=== PATIENT | male | born 1970 | race Two or more races ===

== ENCOUNTER 2019-05-14 17:20 | Inpatient (IN) | payer OTHER ==
[~2019-05-14] VITALS: Ht 165.1 cm; Wt 109.3 kg
--- NOTE | 2019-05-14 19:48 | NUR ---
DENTAL ASSISTANT MEDICAL ASSISTANT NOTES PAGED [address] FOR ORDERS. SPOKE TO DR BROWN. AWAITING ORDERS.
[2019-05-14 20:00] VITALS: BP 133/97
--- NOTE | 2019-05-14 20:00 | NUR ---
MS RN NOTES RECEIVED PT ON BED. A/O X 4. ON ROOM AIR NO RESPIRATORY DISTRESS NOTED. IV ACCESS NOT WORKING. WILL INSERT ANOTHER ONE. PT BELONGINGS CHECK BY LINSEED CAKE TRIMMER. V/S STABLE. WOUND CHECK DONE. PICTURE TAKEN AND PLACED IN CHART. HEAD OF BED ELEVATED. SIDE RAILS UP. CALL LIGHT WITHIN REACH. BED ALARM ON. WILL CONTINUE TO MONITOR PT CLOSELY.
[2019-05-14] MEDS ORDERED: IV NS 0.9% 1,000 ML IV PRN (20:11)
[2019-05-14] MEDS ORDERED: ONDANSETRON HCL/PF 4 MG/2 ML VIAL IVP PRN (20:30)
[2019-05-14] MEDS ORDERED: Z GUARD REMEDY 2 OZ OINT TP PRN (20:30)
[2019-05-14] MEDS ORDERED: DEXTROSE 50%-WATER 50 ML DISP.SYRIN IV PRN (20:30)
[2019-05-14] MEDS ORDERED: MAG HYDROX/AL HYDROX/SIMETH 30 ML UDC PO PRN (20:30)
[2019-05-14] MEDS ORDERED: MAGNESIUM HYDROXIDE 30 ML UDC PO PRN (20:30)
[2019-05-14] MEDS ORDERED: ZOLPIDEM TARTRATE 5 MG TABLET PO PRN (20:30)
[2019-05-14 21:19] VITALS: BP 133/97
--- NOTE | 2019-05-14 21:40 | NUR ---
MS RN NOTES PER PT HIS WILL BRING HIS MEDLIST IN AM.
[2019-05-14] MEDS: BLOOD SUGAR DIAGNOSTIC 1 EACH STRIP VI SCH (22:45)
[2019-05-14] MEDS: *INSULIN REGULAR(HUMULIN R)HUM 100 UNIT/ML VIAL SQ PRN (22:47)
--- NOTE | 2019-05-14 23:09 | NUR ---
MS RN NOTES PT SEEN AND EXAMINED BY DR BROWN.
[2019-05-15] MEDS: MORPHINE SULFATE INJ 2 MG/ML DISP.SYRIN IV PRN ×4 (01:35→20:56)
[2019-05-15] MEDS ORDERED: VANCOMYCIN 1 GM VIAL ONE ×2 (01:55→01:57)
[2019-05-15] MEDS ORDERED: VANCOMYCIN 2 GM in IV NS 0.9% 500 ML IV ONE (02:00)
[2019-05-15] MEDS: VANCOMYCIN 1 GM in IV D5W 250ml IV SCH ×2 (02:03→03:51)
--- NOTE | 2019-05-15 06:13 | NUR ---
MS RN NOTES no acute changes noted during the shift. provided comfort and safety. will endorse to the am nurse for continuity of care.
[2019-05-15 06:44] LABS: BASOPHILS # (AUTO) 0.1 /CMM (0.0-0.2); BASOPHILS % (AUTO) 0.6 % (0.0-2.0); EOSINOPHILS % (AUTO) 3.6 % (0.0-6.0); HEMATOCRIT 40 % (39-51); HEMOGLOBIN 12.5 g/dL (13.5-17.5); LYMPHOCYTES # (AUTO) 2.5 /CMM (0.8-4.8); LYMPHOCYTES % (AUTO) 24.2 % (20.0-44.0); MEAN CORPUSCULAR HGB CONC 32 g/dl (31.0-36.0); MEAN CORPUSCULAR VOLUME 86 fL (80-96); MONOCYTES # (AUTO) 1.1 /CMM (0.1-1.30); MONOCYTES % (AUTO) 11.2 % (2.0-12.0); NEUTROPHILS # (AUTO) 6.2 /CMM (1.8-8.9); NEUTROPHILS % (AUTO) 60.4 % (43.0-81.0); PLATELET COUNT (AUTO) 275 /CMM (150-450); WHITE BLOOD COUNT (AUTO) 10.2 K/uL (4.3-11.0)
[2019-05-15] MEDS: BLOOD SUGAR DIAGNOSTIC 1 EACH STRIP VI SCH ×4 (07:14→21:46)
[2019-05-15] MEDS ORDERED: FEE PK DOSING 1 MIN EA MC ONE (07:24)
[2019-05-15 07:28] LABS: CALCIUM, SERUM 8.2 mg/dL (8.5-10.1); CREATININE 1.3 mg/dL (0.6-1.3); MAGNESIUM 1.9 mg/dL (1.8-2.4)
[2019-05-15 08:00] VITALS: BP_SYST 142; BP_SYST 161; BP_DIAS 75; BP_DIAS 89
--- NOTE | 2019-05-15 08:00 | NUR ---
MS RN NOTES RECEIVED PT ON BED. A/O X 4. ON ROOM AIR NO RESPIRATORY DISTRESS NOTED. IV ACCESS HEAD OF BED ELEVATED. SIDE RAILS UP. GOES TO THE TOILET OFTEN DUE TO LASIX IV. XENIA ABSCESS IS MANAGED BY PAIN MED PRN WITH EFFECTIVE RESULT. CALL LIGHT WITHIN REACH. BED ALARM ON. WILL CONTINUE TO MONITOR PT CLOSELY.
[2019-05-15] MEDS: FUROSEMIDE 40 MG/4 ML VIAL IV SCH ×2 (08:27→17:43)
[2019-05-15] MEDS ORDERED: LISI-607 PO (08:31)
[2019-05-15] MEDS ORDERED: MELO-105 PO (08:31)
[2019-05-15] MEDS ORDERED: IBUP-1955 PO (08:31)
[2019-05-15] MEDS ORDERED: DOCU-141 PO (08:31)
[2019-05-15] MEDS ORDERED: HYDR-4384 PO (08:31)
[2019-05-15] MEDS ORDERED: INSU100V3 IJ (08:31)
[2019-05-15] MEDS ORDERED: ATOR40TA PO (08:31)
--- NOTE | 2019-05-15 10:54 | NUR ---
WOUND CARE CONSULT: PT PRESENTS AMBULATORY AND CONTINENT WITH RED, INDURATED, SWOLLEN LEFT UPPER ARM, PRESENT ON ADMISSION. DEFER TO PMD. WILL SEE PRN.
[2019-05-15] MEDS: INSULIN REGULAR, HUMAN 100 UNIT/ML 3 ML VIAL SQ PRN (17:43)
[2019-05-15] MEDS: PIPERACILLIN /TAZOBACTAM 3.375 G in IV D5W 50 ML IV SCH ×2 (18:23→23:47)
--- NOTE | 2019-05-15 19:32 | NUR ---
ALL CONSENTS FOR INCISION,DRAINAGE AND DEBRIDEMENT OF XENIA ABSCESS TOMORROW HAS BEEN SIGNED.NPO POST MIDNIGHT. SX WILL BE DONE BY DR FIGUEREDO.CALL LIGHT PLACED WITHIN REACH.
[2019-05-15 20:00] VITALS: BP 148/89
[2019-05-16] MEDS: VANCOMYCIN 1.5 GM in IV D5W 500 ML IV SCH (02:05)
[2019-05-16] MEDS: MORPHINE SULFATE INJ 2 MG/ML DISP.SYRIN IV PRN ×5 (02:10→23:54)
--- NOTE | 2019-05-16 06:30 | NUR ---
MS RN PM CLOSING NOTES PT IN BED. A/O X 4. ON ROOM AIR NO RESPIRATORY DISTRESS NOTED. NEW IV ACCESS INSERTED AND CONTINUING IV ANTIBIOTIC INFUSION 22 LEFT AC. RIGHT AC NOTED TO BE LEAKING, DRESSING CHANGED AND LEAKING STOPPED AND PATIENT DENIES PAIN AT THE SITE. PATIENT MEDICATED FOR PAIN WITH MORPHINE 2MG ORDERED FOR PAIN OF 8 /10 TO LEFT ARM. SIDE RAILS UP. CALL LIGHT WITHIN REACH. BED ALARM ON. WILL CONTINUE TO MONITOR PT VERBALIZED UNDERSTANDUING TO CALL FOR ASSISTANCE NEEDED. .
[2019-05-16] MEDS: PIPERACILLIN /TAZOBACTAM 3.375 G in IV D5W 50 ML IV SCH ×5 (06:33→23:45)
[2019-05-16 06:48] LABS: BASOPHILS % (AUTO) 0.5 % (0.0-2.0); EOSINOPHILS % (AUTO) 4.1 % (0.0-6.0); HEMATOCRIT 36 % (39-51); HEMOGLOBIN 11.7 g/dL (13.5-17.5); LYMPHOCYTES # (AUTO) 1.5 /CMM (0.8-4.8); LYMPHOCYTES % (AUTO) 19.2 % (20.0-44.0); MEAN CORPUSCULAR HGB CONC 33 g/dl (31.0-36.0); MEAN CORPUSCULAR VOLUME 85 fL (80-96); MONOCYTES # (AUTO) 0.9 /CMM (0.1-1.30); MONOCYTES % (AUTO) 12.2 % (2.0-12.0); NEUTROPHILS # (AUTO) 4.9 /CMM (1.8-8.9); PLATELET COUNT (AUTO) 229 /CMM (150-450); RED BLOOD CELL COUNT(AUTO) 4.26 MIL/uL (4.5-6.0); WHITE BLOOD COUNT (AUTO) 7.7 K/uL (4.3-11.0)
[2019-05-16 06:55] LABS: ALANINE AMINOTRANSFERASE 22 U/L (12-78); ALBUMIN 2.7 g/dL (3.4-5.0); ALKALINE PHOSPHATASE 134 U/L (46-116); ASPARTATE AMINOTRANSFERASE 26 U/L (15-37); BILIRUBIN,TOTAL 0.5 mg/dL (0.2-1.0); CARBON DIOXIDE 28 mmol/L (21-32); CHLORIDE 101 mmol/L (98-107); CREATININE 1.1 mg/dL (0.6-1.3); GLUCOSE 144 mg/dL (74-106); MAGNESIUM 1.5 mg/dL (1.8-2.4); PHOSPHORUS 3.7 mg/dL (2.5-4.9); POTASSIUM 3.7 mmol/L (3.5-5.1); SODIUM SERUM 136 mmol/L (136-145); TOTAL PROTEIN, SERUM 7.5 g/dL (6.4-8.2); UREA NITROGEN, BLOOD 19 mg/dL (7-18)
[2019-05-16 06:56] LABS: CHOLESTEROL 85 mg/dL (<200); HDL CHOLESTEROL 30 mg/dL (40-60); LDL 51 mg/dL (0-99); TRIGLYCERIDES 51 mg/dL (30-150)
[2019-05-16] MEDS: BLOOD SUGAR DIAGNOSTIC 1 EACH STRIP VI SCH ×4 (07:34→21:23)
--- NOTE | 2019-05-16 07:44 | NUR ---
MS RN OPENING NOTES: RECEIVED PT AWAKE ON BED RESTING COMFORTABLY IN MODERATE HIGH BACK REST. A/O X 4. ON RA, NO SOB NOTED. NO C/O PAIN OR DISTRESS AT THIS TIME. IV ACCESS ON RAC #22 CURRENTLY WITH VANCOMYCIN @250 ML/HR INFUSING. PATENT AND INTACT. SAFETY MEASURES IN PLACE, BED KEPT IN LOW, LOCKED POSITION WITH SIDE RAILS X 2. CALL LIGHT WITHIN REACH. WILL CONTINUE TO MONITOR.
[2019-05-16 08:00] VITALS: BP 150/88
[2019-05-16] MEDS: FUROSEMIDE 40 MG/4 ML VIAL IV SCH ×3 (09:11→17:28)
[2019-05-16] MEDS: Magnesium 1GM/D5W 100ML PREMIX 100 ML IV SCH ×2 (09:12→10:42)
--- NOTE | 2019-05-16 11:31 | NUR ---
RN NOTES PATIENT LEFT UNIT FOR I & D, LEFT WITH HOSPITAL STAFF VIA GURNEY. PATIENT IS STABLE WITH NO S/S OF DISTRESS.
[2019-05-16] MEDS ORDERED: MIDAZOLAM HCL 2 MG/2ML VIAL ONE (11:39)
[2019-05-16] MEDS ORDERED: FAMOTIDINE/PF INJ 20 MG/2 ML VIAL IV ONE (11:40)
[2019-05-16] MEDS ORDERED: FENTANYL PF 100MCG/2ML AMPUL ONE (11:40)
--- NOTE | 2019-05-16 13:10 | NUR ---
RN NOTES PATIENT CAME BACK FROM I & D. PATIENT IN STABLE CONDITION. ALL ORDERS MADE AND CARRIED OUT. WILL CONTINUE TO MONITOR.
[2019-05-16] MEDS ORDERED: PHYTONADIONE INJ 10 MG/1 ML AMPUL SQ ONE (14:00)
[2019-05-16] MEDS: HYDROCODONE/APAP 5/325MG 1 EACH TABLET PO PRN ×2 (14:35→19:44)
[2019-05-16] MEDS: POTASSIUM CHLORIDE 20 MEQ TAB.PRT.SR PO SCH ×3 (14:37→16:46)
[2019-05-16 16:00] VITALS: BP 130/81
[2019-05-16] MEDS: INSULIN REGULAR, HUMAN 100 UNIT/ML 3 ML VIAL SQ PRN (16:45)
[2019-05-16 18:41] LABS: APPEARANCE,URINE CLEAR (CLEAR); BILIRUBIN,URINE NEGATIVE (NEGATIVE); BLOOD, URINE NEGATIVE Ery/uL (NEGATIVE); COLOR,URINE YELLOW (YELLOW); KETONES,URINE NEGATIVE (NEGATIVE); LEUKOCYTE ESTERASE ,URINE NEGATIVE (NEGATIVE); NITRITE, URINE NEGATIVE (NEGATIVE); PH,URINE 5.5 (5.0-8.0); PROTEIN,URINE NEGATIVE (NEGATIVE); UGLUCOSE NEGATIVE (NEGATIVE); UROBILINOGEN,URINE 0.2 EU/dL (0.2)
--- NOTE | 2019-05-16 19:12 | NUR ---
RESEARCH ASSOCIATE PROFESSOR CLOSING NOTES: PT AWAKE ON BED RESTING COMFORTABLY IN MODERATE HIGH BACK REST. A/O X 4. ON RA, NO SOB NOTED. S/P I&D, NO BLEEDING AT THE SITE. DRESSING INTACT ON LEFT ARM. IV ACCESS ON RAC #22, SL. PATENT AND INTACT. ON TELE MONITORING WITH CURRENT READING OF ATRIAL FIBRILLATION, HR OF 100'S. SAFETY MEASURES IN PLACE, BED KEPT IN LOW, LOCKED POSITION WITH SIDE RAILS X 2. CALL LIGHT WITHIN REACH. WILL ENDORSED TO CHIP MUCKER NURSE FOR JACQUELINE.
--- NOTE | 2019-05-16 19:30 | NUR ---
LEGAL SUMMER INTERN OPENING NOTE RECEIVED PATIENT IN BED. A/O X4. TOLERATING ROOM AIR. RESPIRATIONS ARE EVEN AND UNLABORED. IV ACCESS IN LAC GAUGE 22 PATENT AND SALINE LOCKED. EXTERNAL TELE MONITOR READS A. FLUTTER WITH HR OF 111. CALL LIGHT WITHIN REACH. BED IS LOW AND LOCKED , SIDE RAILS UP X2. WILL CONTINUE TO MONITOR.
--- NOTE | 2019-05-16 19:30 | NUR ---
MILK RECEIVER NOTE 1945 ADMINISTERED PRN NORCO 5-325 FOR 10/10 PAIN IN LEFT SHOULDER. WILL CONTINUE TO MONITOR.
[2019-05-16 20:00] VITALS: BP 134/86
--- NOTE | 2019-05-16 20:20 | NUR ---
DOOR TO DOOR SELLING AGENT NOTE WEB ADMINISTRATOR INFORMED ME THAT THE PATIENTS EXTERNAL TELE MONITOR IS READING 140 - 180'S A-FIB AND VTACH. CHECKED IN PATIENTS ROOM AND HE IS CURRENTLY WALKING TO USE THE RESTROOM WITH NO SIGNS OF DISTRESS. INFORMED PATIENT THAT I WILL BE COMING IN EVERY TIME THE HR INCREASES, WELL TO USE THE URINAL TO DECREASE NUMBER OF TIMES THE PATIENT NEEDS TO STAND. PATIENT REFUSED. WILL CONTINUE TO MONITOR.
--- NOTE | 2019-05-16 22:00 | NUR ---
PATCHER WOOD WELDER NOTE ACCUCHECK READS BLOOD SUGAR 127. NO INSULIN COVERAGE GIVEN. WILL CONTINUE TO MONITOR.
--- NOTE | 2019-05-16 23:55 | NUR ---
HIDE MILL MAN NOTE ADMINISTERED PRN MORPHINE 2MG/1ML FOR PAIN 10/10 IN LEFT SHOULDER. WILL CONTINUE TO MONITOR.
[2019-05-17] VITALS (7 sets, daily range): BP systolic 106–132; BP diastolic 68–88
--- NOTE | 2019-05-17 | NUR ---
BALE SEWER NOTE EXTERNAL TELE MONITOR READS HR 109 A. FLUELMERER. WILL CONTINUE TO MONITOR.
--- NOTE | 2019-05-17 01:30 | NUR ---
RADIO ANNOUNCER NOTE CALLED DR. RBOWN TO INFORM HIM THAT THE PATIENT HAD AN EPISODE OF SVT WITH HR 220 FOR 5 MINS FROM 0117 - 0122. STAT EKG ORDERED AND READS 109 SINUS TACH WITH RIGHT SIDE BBB. BLOOD PRESSURE 134/93, HR 109. STATES THE PATIENT TAKES METOPROLOL 50 MG AT HOME. PATIENT HAS NOT TAKEN A DOSE OF METOPROLOL DURING HOSPITALIZATION. MD TELEPHONE ORDERED: METOPROLOL 50MG, PO, ONE TIME, NOW. ORDER READ BACK AND CARRIED OUT. WILL CONTINUE TO MONITOR.
[2019-05-17] MEDS ORDERED: METOPROLOL TARTRATE 50 MG TABLET PO ONE (01:51)
[2019-05-17] MEDS: VANCOMYCIN 1.5 GM in IV D5W 500 ML IV SCH ×2 (02:56→20:53)
--- NOTE | 2019-05-17 05:20 | NUR ---
NAIL EXPERT NOTE ADMINISTERED PRN MORPHINE 2MG FOR PAIN IN LEFT SHOULDER 06/13. WILL CONTINUE TO MONITOR.
[2019-05-17] MEDS: MORPHINE SULFATE INJ 2 MG/ML DISP.SYRIN IV PRN ×5 (05:23→22:47)
[2019-05-17] MEDS: PIPERACILLIN /TAZOBACTAM 3.375 G in IV D5W 50 ML IV SCH ×3 (05:59→17:20)
[2019-05-17 06:12] LABS: BASOPHILS % (AUTO) 0.5 % (0.0-2.0); EOSINOPHILS % (AUTO) 3.9 % (0.0-6.0); HEMATOCRIT 36 % (39-51); HEMOGLOBIN 11.7 g/dL (13.5-17.5); LYMPHOCYTES # (AUTO) 1.7 /CMM (0.8-4.8); LYMPHOCYTES % (AUTO) 23.7 % (20.0-44.0); MEAN CORPUSCULAR HGB CONC 33 g/dl (31.0-36.0); MEAN CORPUSCULAR VOLUME 84 fL (80-96); MONOCYTES # (AUTO) 0.9 /CMM (0.1-1.30); MONOCYTES % (AUTO) 12.2 % (2.0-12.0); NEUTROPHILS # (AUTO) 4.2 /CMM (1.8-8.9); NEUTROPHILS % (AUTO) 59.7 % (43.0-81.0); PLATELET COUNT (AUTO) 240 /CMM (150-450); RED BLOOD CELL COUNT(AUTO) 4.25 MIL/uL (4.5-6.0); WHITE BLOOD COUNT (AUTO) 7.1 K/uL (4.3-11.0)
[2019-05-17 07:02] LABS: ALBUMIN 2.7 g/dL (3.4-5.0); BILIRUBIN,TOTAL 0.5 mg/dL (0.2-1.0); CALCIUM, SERUM 7.9 mg/dL (8.5-10.1); CREATININE 1.2 mg/dL (0.6-1.3); MAGNESIUM 1.6 mg/dL (1.8-2.4); PHOSPHORUS 3.4 mg/dL (2.5-4.9); POTASSIUM 3.7 mmol/L (3.5-5.1); TOTAL PROTEIN, SERUM 7.4 g/dL (6.4-8.2)
--- NOTE | 2019-05-17 07:30 | NUR ---
MASK INSPECTOR NOTE 6503 ACCU CHECK BLOOD SUGAR READ 166. NO INSULIN COVERAGE GIVEN D/T PT REFUSED.
[2019-05-17] MEDS: BLOOD SUGAR DIAGNOSTIC 1 EACH STRIP VI SCH ×4 (07:41→21:27)
--- NOTE | 2019-05-17 08:00 | NUR ---
RN OPENING NOTE PT WAS RECEIVED IN BED AT LOWEST AND LOCKED POSITION WITH SIDE RAILS UP X2, A/O X4 BREATHING EVEN AND UNLABORED ON RA, NO S/S OF ANY DISTRESS AT THIS TIME, ON TELE MONITOR CURRENTLY SHOWING A.FLUTTER, PT NOTED TO BE AMBULATORY, PT WAS JUST TAKEN DOWN FOR CT ABD/PELVIS, SAFETY PRECAUTIONS IN PLACE, CALL LIGHT WITHIN REACH, WILL MONITOR ACCORDINGLY
--- NOTE | 2019-05-17 08:20 | NUR ---
INSTITUTIONAL RESEARCH COORDINATOR CLOSING NOTE PATIENT RESTING IN BED. A/O X4. TOLERATING ROOM AIR. RESPIRATIONS ARE EVEN AND UNLABORED. NO SIGN OF SOB NOTED. IV ACCESS MAINTAINED IN LAC GAUGE 22 PATENT AND SALINE LOCKED. EXTERNAL TELE MONITOR READS A. FLUTTER WITH HR OF 109. CALL LIGHT WITHIN REACH. BED IS LOW AND LOCKED , SIDE RAILS UP X2. WILL ENDORSE TO NEXT SHIFT FOR JACQUELINE.
[2019-05-17] MEDS: Magnesium 1GM/D5W 100ML PREMIX 100 ML IV SCH ×2 (08:35→09:25)
[2019-05-17] MEDS: POTASSIUM CHLORIDE 20 MEQ TAB.PRT.SR PO SCH ×3 (08:35→09:25)
[2019-05-17] MEDS: FUROSEMIDE 100 MG/10 ML VIAL IV SCH ×3 (08:38→16:40)
[2019-05-17] MEDS ORDERED: METOPROLOL SUCCINATE 50 MG TAB.SR.24H PO SCH (09:30)
--- NOTE | 2019-05-17 11:19 | NUR ---
PAPER AND PULP MILL OPERATORCOUNTER ROLLER FOR CONTINUITY OF CARE RECEIVED PT LAYING IN BED W/ HOB SLIGHTLY ELEVATED. PT IS A/OX4, AFEBRILE. RESPIRATIONS ARE EVEN AND UNLABORED, NOT IN ANY ACUTE DISTRESS NOTED. DENIES ANY CHEST PAIN, NO C/O SOB, N/V.IV SITE TO LAC INTACT, NO INFILTRATION NOTED. DRESSING KEPT CLEAN AND DRY. AT BEDSIDE. SAFETY MEASURES ARE IN PLACE. INSTRUCTED PT TO USE CALL LIGHT WHEN ASSISTANCE IS NEEDED, CALL LIGHT IS LEFT WITHIN REACH. WILL MONITOR THROUGHOUT SHIFT FOR CONTINUITY OF CARE.
--- NOTE | 2019-05-17 11:20 | NUR ---
TRANSFER OF CARE NOTE REPORT GIVEN TO MISAEL DOZIER AT THIS TIME
--- NOTE | 2019-05-17 11:40 | NUR ---
ASSEMBLER ARRANGER NOTES-- FAXED DISCLOSURE OF HEALTH INFORMATION FORM TO [facility] TO OBTAIN RECORDS.
[2019-05-17] MEDS: HYDROCODONE/APAP 5/325MG 1 EACH TABLET PO PRN ×3 (12:04→20:54)
[2019-05-17] MEDS: INSULIN REGULAR, HUMAN 100 UNIT/ML 3 ML VIAL SQ PRN (12:06)
--- NOTE | 2019-05-17 13:00 | NUR ---
MS RN NOTES-- SPOKE WITH MEDICAL RECORDS FROM [facility] AND THEY STATED THAT THEY DO NOT RECEIVED FAX FOR PATIENT DISCLOSURE AND ONLY RECEIVES EMAIL. NOTIFIED CHARGE NURSE, NURSE FOOD SERVICE ATTENDANT, AND STACI MUNIZ.
[2019-05-17] MEDS: LACTOBACILLUS RHAMNOSUS GG 1 EACH CAP.SPRINK PO SCH (16:40)
--- NOTE | 2019-05-17 18:52 | NUR ---
SR. PAYROLL PROCESSOR CLOSING NOTES ALL DUE MEDS GIVEN, NEEDS MET AND RENDERED. PT IS A/O X4, AFEBRILE. RESPIRATIONS ARE EVEN AND UNLABORED, NOT IN ANY ACUTE DISTRESS NOTED. PT C/O PAIN 10/10 TO LEFT ARM, ADMINISTERED MORPHINE ORDERED, WILL NOTE EFFECTIVENESS. DENIES ANY SOB, N/V. IV SITE LAC INTACT, NO INFILTRATION NOTED. DRESSING KEPT CLEAN AND DRY. SAFETY MEASURES ARE IN PLACE. REMINDED PT TO USE CALL LIGHT WHEN ASSISTANCE IS NEEDED, CALL LIGHT IS LEFT WITHIN REACH. WILL ENDORSE TO NEXT SHIFT FOR CONTINUITY OF CARE.
--- NOTE | 2019-05-17 19:30 | NUR ---
THERMOFORMING MACHINE OPERATOR NOTE PATIENT REPORTED TAKING HIS OWN MEDICATIONS OF DOCUSATE SODIUM, 100MG TO HAVE A BOWEL MOVEMENT. I INFORMED THE PATIENT THAT IS NOT ALLOWED AND THAT HE IS NOT TO TAKE ANY MEDICATION WITHOUT THE DOCTORS KNOWLEDGE AND THAT I HAVE TO CONFISCATE THE MEDICATION TO TAKE TO PHARMACY AND IT WILL BE RETURNED UPON DISCHARGE. PATIENT WAS STARTING TO GET ANGRY AND TOOK 2 TABS THEN HANDED OVER THE BOTTLE. HE ALSO REPORTED TO TAKING SOME TABS EARLIER. WILL MAKE A INCIDENT REPORT.
--- NOTE | 2019-05-17 19:30 | NUR ---
PATTERN DESIGNER OPENING NOTE RECEIVED PATIENT IN BED. A/O X4. TOLERATING ROOM AIR. RESPIRATIONS ARE EVEN AND UNLABORED. SOB NOTED WHEN AMBULATING. IV ACCESS IN LAC GAUGE 22 PATENT AND SALINE LOCKED. EXTERNAL TELE MONITOR READS A. FLUTTER WITH HR OF 109. NO APPARENT DISTRESS AT THIS TIME. CALL LIGHT WITHIN REACH. BED IS LOW AND LOCKED , SIDE RAILS UP X2. HOB ELEVATED 30 DEGREES. WILL CONTINUE TO MONITOR.
[2019-05-17] MEDS: ACETAMINOPHEN 325 MG TABLET PO PRN (19:53)
--- NOTE | 2019-05-17 19:55 | NUR ---
VP PUBLIC RELATIONS NOTE ADMINISTERED PRN TYLENOL 650MG FOR COMPLAINT OF HEADACHE. WILL CONTINUE TO MONITOR.
--- NOTE | 2019-05-17 20:20 | NUR ---
SUPERVISOR PAPER MACHINE NOTE PATIENT REPORTED THAT THE TYLENOL 650MG DID HELP WITH HIS HEADACHE. WILL CONTINUE TO MONITOR.
--- NOTE | 2019-05-17 20:55 | NUR ---
ADVERTISING COPY WRITER NOTE ADMINISTERED PRN NORCO 5-325 FOR PAIN 10/10 IN LEFT SHOULDER. WILL CONTINUE TO MONITOR.
[2019-05-17] MEDS: *INSULIN REGULAR(HUMULIN R)HUM 100 UNIT/ML VIAL SQ PRN (21:31)
--- NOTE | 2019-05-17 22:50 | NUR ---
SHOP REPAIRER NOTE ADMINISTERED PRN MORPHINE 2MG FOR PAIN 8/10 IN LEFT SHOULDER. WILL CONTINUE TO MONITOR.
--- NOTE | 2019-05-17 23:50 | NUR ---
BUSINESS COMMUNICATIONS INSTRUCTOR NOTE CALLED DR. BROWN TO INFORM HIM THAT THE PATIENT HAD AN EPISODE OF SVT WITH HR 220 FOR 20 MINS FROM [id number]. STAT EKG ORDERED AT 2313. EKG PERFORMED AT 2324. EKG READS 112 SINUS TACH, PAC, RIGHT SIDE BBB, BIFASCICULAR BLOCK. BLOOD PRESSURE 141/64, HR 124. AT THE BEDSIDE. TELEPHONE ORDER: NO NEW ORDER, IT IS PATIENTS BASELINE TO HAVE EPISODES OF SVT. ORDER READ BACK AND CARRIED OUT. WILL CONTINUE TO MONITOR.
[2019-05-18] VITALS (9 sets, daily range): BP systolic 94–130; BP diastolic 61–86
--- NOTE | 2019-05-18 | NUR ---
PRINCIPAL QUALITY ENGINEER NOTE PATIENT EXTERNAL TELE MONITOR READS 116 A. FLUTTER. WILL CONTINUE TO MONITOR.
[2019-05-18] MEDS: PIPERACILLIN /TAZOBACTAM 3.375 G in IV D5W 50 ML IV SCH ×5 (00:13→23:21)
[2019-05-18] MEDS: HYDROCODONE/APAP 5/325MG 1 EACH TABLET PO PRN ×4 (01:03→21:22)
--- NOTE | 2019-05-18 01:05 | NUR ---
TELEPHONE LINEMAN NOTE ADMINISTERED PRN NORCO 5-325 FOR PAIN 8/10 IN LEFT SHOULDER. WILL CONTINUE TO MONITOR.
--- NOTE | 2019-05-18 01:30 | NUR ---
BLOCK CABLEMAN NOTE PATIENT HAD AN EPISODE OF SVT FOR 3 MINS. ENTERED PATIENTS ROOM, NO SIGNS OF DISTRESS NOTED, PATIENT STATES HE DOES NOT FEEL SYMPTOMATIC, STATES HE JUST WENT TO THE RESTROOM. ENCOURAGED THE PATIENT TO USE URINAL BUT PATIENT REFUSES. EXPLAINED THE RISKS AND BENEFITS AND STILL REFUSED. WILL CONTINUE TO MONITOR.
[2019-05-18] MEDS: MORPHINE SULFATE INJ 2 MG/ML DISP.SYRIN IV PRN ×4 (02:56→19:02)
--- NOTE | 2019-05-18 02:57 | NUR ---
DRYWALL TAPER NOTE ADMINISTERED PRN MORPHINE 2MG FOR PAIN 10/10 IN LEFT SHOULDER. WILL CONTINUE TO MONITOR.
--- NOTE | 2019-05-18 04:00 | NUR ---
POWER PRESS OPERATOR NOTE PATIENTS EXTERNAL TELE MONITOR IS 106 A. FLUTTER. NO APPARENT SIGNS OF DISTRESS. WILL CONTINUE TO MONITOR.
--- NOTE | 2019-05-18 05:08 | NUR ---
JAVA J2EE LEAD NOTE ADMINISTERED PRN NORCO 5-325 FOR PAIN 10/10 IN LEFT SHOULDER. WILL CONTINUE TO MONITOR.
[2019-05-18] MEDS: ACETAMINOPHEN 325 MG TABLET PO PRN ×2 (05:29→22:50)
--- NOTE | 2019-05-18 06:13 | NUR ---
DIRECTOR OF COMMUNITY SERVICES NOTE ACCUCHECK READ BLOOD SUGAR 86. NO INSULIN COVERAGE GIVEN D/T WNL.
[2019-05-18 06:23] LABS: BASOPHILS % (AUTO) 0.5 % (0.0-2.0); EOSINOPHILS % (AUTO) 5.4 % (0.0-6.0); HEMATOCRIT 37 % (39-51); HEMOGLOBIN 12.2 g/dL (13.5-17.5); LYMPHOCYTES # (AUTO) 1.9 /CMM (0.8-4.8); LYMPHOCYTES % (AUTO) 24.1 % (20.0-44.0); MEAN CORPUSCULAR HGB CONC 33 g/dl (31.0-36.0); MEAN CORPUSCULAR VOLUME 84 fL (80-96); MONOCYTES % (AUTO) 13.2 % (2.0-12.0); NEUTROPHILS # (AUTO) 4.4 /CMM (1.8-8.9); NEUTROPHILS % (AUTO) 56.8 % (43.0-81.0); PLATELET COUNT (AUTO) 259 /CMM (150-450); RED BLOOD CELL COUNT(AUTO) 4.45 MIL/uL (4.5-6.0); WHITE BLOOD COUNT (AUTO) 7.7 K/uL (4.3-11.0)
[2019-05-18] MEDS: BLOOD SUGAR DIAGNOSTIC 1 EACH STRIP VI SCH ×4 (06:24→21:26)
--- NOTE | 2019-05-18 06:40 | NUR ---
EGG SORTER CLOSING NOTE PATIENT RESTING IN BED. A/O X4. REMAINS TO BE TOLERATING ROOM AIR. RESPIRATIONS ARE EVEN AND UNLABORED. SOB NOTED WHEN AMBULATING TO THE RESTROOM. IV ACCESS MAINTAINED IN LAC GAUGE 22 PATENT AND SALINE LOCKED. EXTERNAL TELE MONITOR READS 109 A. FLUTTER. ALL NURSING NEEDS MET. CALL LIGHT REMAINS WITHIN REACH. BED KEPT LOW AND LOCKED , SIDE RAILS UP X2. FAMILY AT THE BEDSIDE. WILL ENDORSE TO NEXT SHIFT FOR JACQUELINE.
[2019-05-18 06:48] LABS: ALANINE AMINOTRANSFERASE 15 U/L (12-78); ALBUMIN 2.9 g/dL (3.4-5.0); ALKALINE PHOSPHATASE 103 U/L (46-116); ASPARTATE AMINOTRANSFERASE 20 U/L (15-37); BILIRUBIN,TOTAL 0.6 mg/dL (0.2-1.0); CALCIUM, SERUM 8.8 mg/dL (8.5-10.1); CARBON DIOXIDE 33 mmol/L (21-32); CHLORIDE 97 mmol/L (98-107); CREATININE 1.2 mg/dL (0.6-1.3); GLUCOSE 113 mg/dL (74-106); MAGNESIUM 1.8 mg/dL (1.8-2.4); PHOSPHORUS 4.7 mg/dL (2.5-4.9); POTASSIUM 3.5 mmol/L (3.5-5.1); SODIUM SERUM 137 mmol/L (136-145); TOTAL PROTEIN, SERUM 7.8 g/dL (6.4-8.2); UREA NITROGEN, BLOOD 15 mg/dL (7-18)
--- NOTE | 2019-05-18 07:20 | NUR ---
FUND MANAGER OPENING NOTE RECEIVED PATIENT IN BED. A/O X4. TOLERATING ROOM AIR. RESPIRATIONS ARE EVEN AND UNLABORED. NO ACUTE RESPIRATORY DISTRESS OR SOB NOTED AT THIS TIME. IV ACCESS IN LAC GAUGE 22 PATENT, INTACT, FLUSHED WELL, SL. ON TELE MONITOR A FLITTER HR 126. WILL NOTIFY DR. DONATO LIGHT WITHIN REACH. BED IS LOW AND LOCKED , SIDE RAILS UP X2. HOB ELEVATED. JULES'S AT BEDSIDE. WILL CONTINUE TO MONITOR.
--- NOTE | 2019-05-18 07:35 | NUR ---
DREDGE ENGINEER NOTE DR. POWELL AT BEDSIDE AND MADE AWARE THAT PT HAS A-FLUTTER.
[2019-05-18] MEDS: POTASSIUM CHLORIDE 20 MEQ TAB.PRT.SR PO SCH ×3 (08:22→10:11)
[2019-05-18] MEDS: LACTOBACILLUS RHAMNOSUS GG 1 EACH CAP.SPRINK PO SCH ×2 (08:22→16:10)
[2019-05-18] MEDS: SPIRONOLACTONE 25 MG TABLET PO SCH (08:22)
[2019-05-18] MEDS: METOPROLOL SUCCINATE 50 MG TAB.SR.24H PO SCH (08:52)
--- NOTE | 2019-05-18 10:50 | NUR ---
RN MS NOTE PT IS STRICT I&O's. HE WAS EDUCATED TO USE URINAL TO BE ABLE TO MEASURE THE URINE AMOUNT. PT REFUSED. WILL EDUCATE LATER.
[2019-05-18] MEDS: INSULIN REGULAR, HUMAN 100 UNIT/ML 3 ML VIAL SQ PRN (12:00)
--- NOTE | 2019-05-18 12:53 | NUR ---
RN MS NOTE PT STILL REFUSING TO USE URINAL AND WALKED TO THE BATHROOM.
[2019-05-18] MEDS: VANCOMYCIN 1.5 GM in IV D5W 500 ML IV SCH (15:24)
--- NOTE | 2019-05-18 16:08 | NUR ---
RN MS NOTE PATIENT'S GOT HIM YORUBA FRIES. PATIENT AND HIS WERE EDUCATED REGARDING HIS [facility] DIET. DISADVANTAGES EXPLAINED. PATIENT NON COMPLAINT AND SAID LONG I GET HOME I WILL EAT WHATEVER I WANT.
[2019-05-18] MEDS: HYDROCODONE/APAP 10/325MG 1 EA TABLET PO PRN (16:10)
--- NOTE | 2019-05-18 18:43 | NUR ---
RN CLOSING NOTE PT RESTING AT BED COMFORTABLY. A/OX4. NO RESPIRATORY DISTRESS OR SOB NOTED AT THIS TIME. ON TELE MONITOR A-FLUTTER HR 105. NO SIGNIFICANT CHANGE THROUGH THE SHIFT. PT IS NOT COMPLAINT IN USING URINAL. PATIENT'S AT BEDSIDE. SAFETY PRECAUTION IN PLACE. BED LOCKED AND LOW, SIDE RAILS UPX2, CALL LIGHT IN REACH. WILL ENDORSE TO THE PM NURSE FOR JACQUELINE.
--- NOTE | 2019-05-18 20:00 | NUR ---
RECEIVED PATIENT IN BED, ALERT AND ORIENTED X4, ON ROOM AIR, TELE MONITOR, JUNCTIONAL TACHYCARDIA, CHRONIC PAIN DUE TO LEFT SHOULDER CELLULITIS, DRESSING DRY AND INTACT, NOT COMPLIANT WITH DIET, EATING OUTSIDE FOOD BROUGHT BY , SPICY TACOS AND CHIPS, STRICT INTAKE AND OUTPUT, REFUSING TO VOID IN URINAL, KEPT SAFE AND COMFORTABLE,
[2019-05-18] MEDS: *INSULIN REGULAR(HUMULIN R)HUM 100 UNIT/ML VIAL SQ PRN (21:14)
[2019-05-19] VITALS (8 sets, daily range): BP systolic 104–135; BP diastolic 61–93
[2019-05-19] MEDS: MORPHINE SULFATE INJ 2 MG/ML DISP.SYRIN IV PRN ×6 (00:05→20:20)
[2019-05-19] MEDS: HYDROCODONE/APAP 5/325MG 1 EACH TABLET PO PRN ×2 (01:28→15:04)
[2019-05-19] MEDS: HYDROCODONE/APAP 10/325MG 1 EA TABLET PO PRN ×2 (06:20→13:44)
[2019-05-19] MEDS: INSULIN REGULAR, HUMAN 100 UNIT/ML 3 ML VIAL SQ PRN ×2 (06:40→12:22)
[2019-05-19] MEDS: PIPERACILLIN /TAZOBACTAM 3.375 G in IV D5W 50 ML IV SCH ×3 (06:42→18:05)
--- NOTE | 2019-05-19 06:46 | NUR ---
RN NOTES PATIENT IS ALERT AND ORIENTED X4, ON ROOM AIR, COMPLAINING OF PAIN TO LEFT SHOULDER, PAIN MANAGED BY NORCO AND MORPHINE IVP. ON TELE, JUNCTIONAL TACHYCARDIA WITH SUSTAINED HR OF 105 BPM, NON COMPLIANT WITH DIABETIC DIET, DRINKING SODA, EATING FOODS BROUGHT BY , STRICT INTAKE AND OUTPUT, REFUSED VOIDING IN URINAL. PATIENT HAS DIFFICULTY UNDERSTANDING THAT NORCO AND MORPHINE ARE PRN AND NOT ROUTINE, PATIENT ARGUING THAT PAIN MEDICATIONS MUST BE GIVEN WHEN DUE. CONTINUE ZOSYN, AND VANCOMYCIN IV, TROUGH AT 05/19/19 0800.
--- NOTE | 2019-05-19 07:10 | NUR ---
RESOURCE CONSERVATION SPECIALIST NOTES RECEIVED PATIENT IN BED SLEEPING WITH ASLEEP BESIDE HIM. AROUSABLE TO VERBAL AND TACTILE STIMULI. HOB ELEVATED. DENIES ANY C/O SOB NOR ANY S/S OF PAIN/DISCOMFORT AT THIS TIME. LEFT SHOULDER DRESSING INTACT. ON TELEMONITORING TACHY WITH HR OF 104. PER NOC SHIFT REPORT, IT'S BASELINE AND PATIENT ALSO STATED HR USUALLY HIGH. BED IN LOWEST POSITION, LOCKED. CALL LIGHT WITHIN REACH. PATIENT WENT BACK TO SLEEP.
--- NOTE | 2019-05-19 07:30 | NUR ---
HOUSEKEEPING ROOM INSPECTOR NOTES BS 121 MG/DL NO INSULIN COVERAGE GIVEN.
--- NOTE | 2019-05-19 07:45 | NUR ---
MECHANICAL DEVELOPMENT ENGINEER NOTES PATIENT AWAKE IN BED. WENT DOWNSTAIRS TO CAFETERIA PER PATIENT. OBSERVED PATIENT EATING HOT CHEETOS CHIPS APPLYING HOT SAUCE AND OBSERVED PATIENT WITH 2 BOTTLES OF HOT SAUCE ON TABLE. EXPLAINED AND EDUCATED PATIENT REGARDING DIET AND CURRENT MEDICAL CONDITION ALONG WITH RISKS AND BENEFITS. PATIENT VERBALIZES UNDERSTANDING AND CONTINUES TO EAT.
[2019-05-19 07:54] LABS: BASOPHILS # (AUTO) 0.1 /CMM (0.0-0.2); BASOPHILS % (AUTO) 0.8 % (0.0-2.0); EOSINOPHILS % (AUTO) 6.2 % (0.0-6.0); HEMATOCRIT 37 % (39-51); LYMPHOCYTES # (AUTO) 1.7 /CMM (0.8-4.8); LYMPHOCYTES % (AUTO) 24.9 % (20.0-44.0); MEAN CORPUSCULAR HGB CONC 32 g/dl (31.0-36.0); MEAN CORPUSCULAR VOLUME 85 fL (80-96); MONOCYTES # (AUTO) 0.9 /CMM (0.1-1.30); MONOCYTES % (AUTO) 13.2 % (2.0-12.0); NEUTROPHILS # (AUTO) 3.8 /CMM (1.8-8.9); NEUTROPHILS % (AUTO) 54.9 % (43.0-81.0); PLATELET COUNT (AUTO) 241 /CMM (150-450); RED BLOOD CELL COUNT(AUTO) 4.39 MIL/uL (4.5-6.0); WHITE BLOOD COUNT (AUTO) 6.8 K/uL (4.3-11.0)
[2019-05-19 08:04] LABS: CALCIUM, SERUM 8.5 mg/dL (8.5-10.1); CREATININE 1.1 mg/dL (0.6-1.3); POTASSIUM 4.4 mmol/L (3.5-5.1)
[2019-05-19] MEDS: BLOOD SUGAR DIAGNOSTIC 1 EACH STRIP VI SCH ×4 (08:42→21:47)
[2019-05-19] MEDS: SPIRONOLACTONE 25 MG TABLET PO SCH (08:42)
[2019-05-19] MEDS: LACTOBACILLUS RHAMNOSUS GG 1 EACH CAP.SPRINK PO SCH ×2 (08:42→16:11)
[2019-05-19] MEDS: METOPROLOL SUCCINATE 50 MG TAB.SR.24H PO SCH (08:43)
--- NOTE | 2019-05-19 08:45 | NUR ---
BOTTLE BLOWER NOTES RECEIVED A CALL FROM DR. FIGUEREDO AND ORDERED WOUND CONSULT FOR WOUND CARE DRESSING, NOTED AND CARRIED OUT.
[2019-05-19] MEDS: VANCOMYCIN 1.5 GM in IV D5W 500 ML IV SCH (09:41)
--- NOTE | 2019-05-19 11:53 | NUR ---
THEATRICAL VARIETY AGENT NOTES DISCUSSED WITH PATIENT REGARDING PAIN MEDICATION REGIMEN FOR NORCO 5/325 MG; NORCO 10/325 MG AND MORPHINE, AND PROVIDED EDUCATION ALONG WITH DIET. PER PATIENT, " I DON'T CARE WHAT THE DR SAYS." NOTED BRINGING OUTSIDE FOOD FOR PATIENT EATING FRIED CHICKEN NUGGETS FROM [employer] AND DRINKING COKE IN A CAN.
--- NOTE | 2019-05-19 17:41 | NUR ---
DIRECTOR OF STUDENT SERVICES NOTES PATIENT WENT TO THE CAFETERIA WITH AND SISTER ACCOMPANIED BY DAYAN CHOI.
[2019-05-19] MEDS: *INSULIN REGULAR(HUMULIN R)HUM 100 UNIT/ML VIAL SQ PRN (18:15)
--- NOTE | 2019-05-19 18:42 | NUR ---
SOLDER LEVELER PRINTED CIRCUIT BOARDS CLOSING NOTES ALERT AND ORIENTED X4. AT BEDSIDE. NO SOB OBSERVED. LEFT AC #22 AND LEFT HAND #24 SL INTACT AND PATENT WITHOUT S/S OF COMPLICATIONS. . LEFT SHOULDER DRESSING INTACT. AMBULATORY WITH STEADY GAIT. PATIENT REMIANS NON-COMPLIANT WITH DIET DESPITE OF EDUCATION WITH RISKS AND BENEFITS EXPLAINED. BED IN LOWEST POSITION, LOCKED. CALL LIGHT WITHIN REACH. IN NO APPARENT DISTRESS.
--- NOTE | 2019-05-19 19:30 | NUR ---
RECEIVED PATIENT WALKING IN ROOM. AO X,3 ABLE TO MAKE NEEDS KNOWN. NO ACUTE DISTRESS NOTED. MONITORED FOR PAIN. HR SINUS TACH HR 107. IV SITES PATENT, INTACT;FLUSHED. SAFETY REMINDERS GIVEN. ON LOW BED WITH BILATERAL UPPER SIDE RAILS UP. GOLDIE SIMMONS WITHIN EASY REACH. WILL CONTINUE TO MONITOR.
[2019-05-20] VITALS (7 sets, daily range): BP systolic 96–131; BP diastolic 62–89
[2019-05-20] MEDS: PIPERACILLIN /TAZOBACTAM 3.375 G in IV D5W 50 ML IV SCH ×4 (00:38→17:17)
[2019-05-20] MEDS: VANCOMYCIN 1.5 GM in IV D5W 500 ML IV SCH ×2 (02:07→20:28)
--- NOTE | 2019-05-20 06:00 | NUR ---
PATIENT ASLEEP, EASILY AROUSABLE. RESPIRATIONS EVEN. NO SIGNS OF PAIN NOTED. NO SYMPTOMS OF HYPER/HYPOGLYCEMIA. DUE MEDS GIVEN WITH NO ASE NOTED. NEEDS ATTENDED. SAFETY PRECAUTIONS AND COMFORT MEASURES IN PLACE. WILL GIVE REPORT TO DAY SHIFT FOR CONTINUITY OF CARE.
[2019-05-20] MEDS: BLOOD SUGAR DIAGNOSTIC 1 EACH STRIP VI SCH ×4 (06:37→21:51)
[2019-05-20] MEDS: INSULIN REGULAR, HUMAN 100 UNIT/ML 3 ML VIAL SQ PRN ×3 (06:38→17:42)
[2019-05-20] MEDS: MORPHINE SULFATE INJ 2 MG/ML DISP.SYRIN IV PRN ×4 (06:41→20:55)
--- NOTE | 2019-05-20 07:21 | NUR ---
BRAND AMBASSADORS PROMOTIONAL SALES OPENING NOTES RECEIVED PT AWAKE IN BED IN NO ACUTE SIGN OF DISTRESS. A/O X3. ABLE TO MAKE NEEDS KNOWN WITH C/O MILD PAIN ON HIS UPPER ARM, DRESSING TO XENIA WITH CHON BANDAGE C/D/I. ON ROOM AIR, BREATHING EVEN AND UNLABORED. TELE-MONITORING SHOWS JUNCTIONAL TACHYCARDIA WITH HR OF 105 AT THIS TIME, NO C/O CARDIAC DISTRESS VOICED. IV ACCESSES ON LAC #22 AND LEFT HAND G#24 BOTH INTACT AND PATENT. SAFETY MEASURES IN PLACE. BED IN LOW LOCKED POSITION WITH UPPER RAILS UP. CALL LIGHT WITHIN REACH. WILL CONTINUE TO MONITOR PT ACCORDINGLY
[2019-05-20 07:27] LABS: BASOPHILS % (AUTO) 0.5 % (0.0-2.0); EOSINOPHILS % (AUTO) 6.5 % (0.0-6.0); HEMATOCRIT 36 % (39-51); HEMOGLOBIN 11.5 g/dL (13.5-17.5); LYMPHOCYTES # (AUTO) 1.6 /CMM (0.8-4.8); LYMPHOCYTES % (AUTO) 25.4 % (20.0-44.0); MEAN CORPUSCULAR HGB CONC 32 g/dl (31.0-36.0); MEAN CORPUSCULAR VOLUME 85 fL (80-96); MONOCYTES # (AUTO) 0.9 /CMM (0.1-1.30); MONOCYTES % (AUTO) 14.4 % (2.0-12.0); NEUTROPHILS # (AUTO) 3.4 /CMM (1.8-8.9); NEUTROPHILS % (AUTO) 53.2 % (43.0-81.0); PLATELET COUNT (AUTO) 229 /CMM (150-450); RED BLOOD CELL COUNT(AUTO) 4.23 MIL/uL (4.5-6.0); WHITE BLOOD COUNT (AUTO) 6.4 K/uL (4.3-11.0)
[2019-05-20 07:40] LABS: CALCIUM, SERUM 8.5 mg/dL (8.5-10.1); CREATININE 1.1 mg/dL (0.6-1.3); POTASSIUM 4.2 mmol/L (3.5-5.1)
[2019-05-20] MEDS: LACTOBACILLUS RHAMNOSUS GG 1 EACH CAP.SPRINK PO SCH ×2 (08:32→17:14)
[2019-05-20] MEDS: SPIRONOLACTONE 25 MG TABLET PO SCH (08:33)
[2019-05-20] MEDS: METOPROLOL SUCCINATE 50 MG TAB.SR.24H PO SCH ×2 (08:33→17:15)
--- NOTE | 2019-05-20 09:44 | NUR ---
RN NOTES FOLLOW-UP ON [facility] REGARDING PT'S RECORD OF XENIA CHACON. SPOKE TO MARIANNE AND SAID THAT PROCESSING TAKES 24HRS BUT SHE WILL TRY TO PROCESS IT TODAY IF NOT THEN TOMORROW THEY ARE VERY BUSY TODAY. WILL ENDORSE. Addendum: 05/20/19 at 0947 by MORIAH GABRIEL RN Amended: Links added.
--- NOTE | 2019-05-20 11:54 | NUR ---
WOUND CARE: PT SEEN FOR SURGICAL WOUND TO LEFT UPPER ARM. RECOMMENDATIONS MADE FOR WOUND CARE AND SKIN PROTECTION. DISCUSSED WITH NURSING STAFF. DRESSING CHANGE DONE USING 1/2 INCH IODOFORM PACKING. PT TOLERATED WELL. WILL SEE PRN. Addendum: 05/20/19 at 1155 by MAJO MON WNDNU Amended: Links added.
[2019-05-20] MEDS: FUROSEMIDE 40 MG/4 ML VIAL IV SCH ×2 (15:19→21:45)
--- NOTE | 2019-05-20 16:35 | NUR ---
RN NOTES/ PAIN MANAGEMENT PT IN BED AND C/O PAIN ON HIS LEFT UPPER ARM WOUND WITH SCALE OF 10/10. PRN MORPHINE 2MG/1ML IVP ADMINISTERED AT 1632. WILL CONTINUE TO MONITOR AND REASSESS PT.
--- NOTE | 2019-05-20 18:54 | NUR ---
FILM LOADER CLOSING NOTES PT AWAKE AND WATCHING TV IN BED. A/O X3. ABLE TO MAKE NEEDS KNOWN AND AMBULATORY. DRESSING TO XENIA WITH CHON BANDAGE C/D/I. ON ROOM AIR, TOLERATING WELL WITH NO SOB NOTED. TELE-MONITORING SHOWS JUNCTIONAL TACHYCARDIA WITH HR OF 104 AT THIS TIME, NO C/O CARDIAC DISTRESS VOICED. IV ACCESSES ON LAC #22 AND LEFT HAND G#24 BOTH INTACT AND PATENT, NO S/S OF INFILTRATIONS NOTED. ALL NEEDS AND CARE ATTENDED WELL. BED PLACED IN LOW LOCKED POSITION W/ SIDE-RAILS UP X2. CALL LIGHT WITHIN EASY REACH OF PT. WILL ENDORSE TO CLINICAL NURSE SPECIALIST NURSE FOR JACQUELINE
--- NOTE | 2019-05-20 19:30 | NUR ---
FOUR CORNER FORMER MACHINE OPERATOR OPENING NOTES RECEIVED PATIENT AWAKE, A/OX3. ABLE TO MAKE NEEDS KNOWN AND AMBULATORY. FAMILY AT BEDSIDE. ON TELE MONITOR JUNCTIONAL TACHYCARDIA WITH HR OF 104, NO CARDIAC DISTRESS NOTED/VOICED. DRESSING TO XENIA WITH CHON BANDAGE C/D/I. ON ROOM AIR, TOLERATING WELL, NO SOB OR RESPIRATORY DISTRESS NOTED. IV SITES ON LAC #22G AND LEFT HAND G#24G, BOTH FLUSHING AND PATENT, NO S/S OF INFILTRATIONS NOTED. SAFETY MEASURES IN PLACE; BED IN LOW AND LOCKED POSITION, SIDE-RAILS UP X2,CALL LIGHT WITHIN REACH. WILL CONT TO MONITOR PT.
[2019-05-20] MEDS: *INSULIN REGULAR(HUMULIN R)HUM 100 UNIT/ML VIAL SQ PRN (22:10)
[2019-05-21] VITALS: BP 129/85
[2019-05-21] MEDS: ACETAMINOPHEN 325 MG TABLET PO PRN (00:15)
[2019-05-21] MEDS: PIPERACILLIN /TAZOBACTAM 3.375 G in IV D5W 50 ML IV SCH ×4 (00:50→19:36)
[2019-05-21] MEDS: MORPHINE SULFATE INJ 2 MG/ML DISP.SYRIN IV PRN ×5 (00:55→20:08)
[2019-05-21 04:00] VITALS: BP_SYST 123; BP_DIAS 68; BP_DIAS 87
[2019-05-21 06:33] LABS: BASOPHILS % (AUTO) 0.6 % (0.0-2.0); EOSINOPHILS % (AUTO) 6.1 % (0.0-6.0); HEMATOCRIT 36 % (39-51); HEMOGLOBIN 11.9 g/dL (13.5-17.5); LYMPHOCYTES # (AUTO) 2.1 /CMM (0.8-4.8); LYMPHOCYTES % (AUTO) 28.6 % (20.0-44.0); MEAN CORPUSCULAR HGB CONC 33 g/dl (31.0-36.0); MEAN CORPUSCULAR VOLUME 83 fL (80-96); NEUTROPHILS # (AUTO) 3.8 /CMM (1.8-8.9); NEUTROPHILS % (AUTO) 51.7 % (43.0-81.0); PLATELET COUNT (AUTO) 231 /CMM (150-450); RED BLOOD CELL COUNT(AUTO) 4.35 MIL/uL (4.5-6.0); WHITE BLOOD COUNT (AUTO) 7.3 K/uL (4.3-11.0)
[2019-05-21 07:02] LABS: BILIRUBIN,TOTAL 0.5 mg/dL (0.2-1.0); MAGNESIUM 1.7 mg/dL (1.8-2.4); PHOSPHORUS 3.8 mg/dL (2.5-4.9); POTASSIUM 4.2 mmol/L (3.5-5.1); TOTAL PROTEIN, SERUM 8.1 g/dL (6.4-8.2)
--- NOTE | 2019-05-21 07:45 | NUR ---
MOLD BREAKER CLOSING NOTES PATIENT AWAKE, A/OX3. ABLE TO MAKE NEEDS KNOWN AND AMBULATORY. NO ACUTE CHANGES THROUGHOUT SHIFT. ON TELE MONITOR JUNCTIONAL TACHYCARDIA WITH HR OF 104, NO CARDIAC DISTRESS NOTED/VOICED. DRESSING TO XENIA WITH CHON BANDAGE C/D/I. ON ROOM AIR, TOLERATING WELL, NO SOB OR RESPIRATORY DISTRESS NOTED. IV SITES ON LAC #22G AND LEFT HAND G#24G, BOTH FLUSHING AND PATENT, NO S/S OF INFILTRATIONS NOTED. SAFETY MEASURES IN PLACE; BED IN LOW AND LOCKED POSITION, SIDE-RAILS UP X2,CALL LIGHT WITHIN REACH. ALL MD ORDERS ATTENDED, ALL NEEDS ANTICIPATED AND MET. ENDORSED TO AM RN FOR JACQUELINE.
[2019-05-21 08:00] VITALS: BP 116/83
--- NOTE | 2019-05-21 08:00 | NUR ---
RN NOTES RECEIVED PATIENT IN THE BED A/O X3 OBESE PATIENT ON TELE HR 107. PATIENT HAS NO ACUTE RESPIRATORY DISTRESS, V/S TAKEN STABLE . PATIENT WAS COMPLAINING OF LEFT ARM PAIN, NOT HAPPY WITH PAIN MANAGEMENT PATIENT STATE " MEDICATION NOT WORKING, I AM GOING TO GO HOME AND GET MY OWN STREET PAIN MEDICATION". ADMINISTERED SCHEDULED MEDICATION. PATIENT HAS A WOUND ON ON LEFT UPPER ARM. IV ACCESS ON LEFT AC AREA INTACT. PATIENT AMBULATORY SELF CARE, USING BATHROOM, AND URINAL. CALL LIGHT WITHIN TO REACH, SAFETY PRECAUTION MAINTAINED ALL THE TIME.
[2019-05-21] MEDS: BLOOD SUGAR DIAGNOSTIC 1 EACH STRIP VI SCH ×4 (08:49→21:46)
[2019-05-21] MEDS: LACTOBACILLUS RHAMNOSUS GG 1 EACH CAP.SPRINK PO SCH ×2 (08:50→17:46)
[2019-05-21] MEDS: HYDROCODONE/APAP 10/325MG 1 EA TABLET PO PRN (08:53)
[2019-05-21] MEDS: METOPROLOL SUCCINATE 50 MG TAB.SR.24H PO SCH ×2 (08:53→17:47)
[2019-05-21] MEDS: SPIRONOLACTONE 25 MG TABLET PO SCH (08:53)
--- NOTE | 2019-05-21 08:53 | NUR ---
rn notes patient very unhappy because of pain 10/10 per pain scale, anxious, grumpy, get irritable easily, administered narco 10/325 po prn for patient request. also administered scheduled medication. bs-186 mg/dl, coverage given. patient ambulatory self care. call light within to reach, safety precaution maintained all the time. seen by broiler manager Dr Perez d/c tele patient on med /surge at this time. continued monitoring.
[2019-05-21] MEDS: FUROSEMIDE 40 MG/4 ML VIAL IV SCH ×2 (08:54→17:46)
[2019-05-21] MEDS ORDERED: Magnesium 1GM/D5W 100ML PREMIX 100 ML IV SCH (09:30)
[2019-05-21] MEDS: INSULIN REGULAR, HUMAN 100 UNIT/ML 3 ML VIAL SQ PRN ×4 (09:33→21:47)
[2019-05-21] MEDS ORDERED: Magnesium 1GM/D5W 100ML PREMIX 100 ML IV ONE (10:00)
--- NOTE | 2019-05-21 10:07 | NUR ---
rn notes administered morphine sulfate 2 mg/ml iv push for left arm pain 10 /10 per patient request v/s taken bp 116/77. p-105, encouraged to increase fluid intake.
--- NOTE | 2019-05-21 10:21 | NUR ---
WOUND CARE: PT SEEN ON REQUEST OF NURSING STAFF AND PT TO REMOVE CHON WRAP AND EXCHANGE FOR BURN NET. DRESSING DRY AND INTACT UNDER CHON WRAP. PT TO BE SEEN TODAY BY DR FIGUEREDO PER [facility] REGISTERED NURSE. RECOMMENDATIONS MADE FOR OUTER DRESSING (BURN NET) AND DISCUSSED WITH NURSING STAFF. WILL SEE PRN.
[2019-05-21 12:00] VITALS: BP 116/77
--- NOTE | 2019-05-21 12:00 | NUR ---
RN NOTES BS- 139 MG/DL, COVERAGE GIVEN, MEDICATION WERE ADMINISTERED FOR PAIN EFFECTIVE RESTING IN THE BED. SEEN BY Dr FIGUEREDO SURGEON. PER SURGEON PATIENT ABLE TO TAKE A SHOWER.
--- NOTE | 2019-05-21 14:00 | NUR ---
RN NOTES PATIENT REFUSED TO TAKE A SHOWER AT THIS TIME BECAUSE WAITING FOR A TO BRING SOME CLOTHES. INFUSING ZOSYN AT THIS TIME ON LEFT AC AREA INTACT.
--- NOTE | 2019-05-21 14:10 | NUR ---
RN NOTES ADMINISTERED MORPHINE SULFATE 2 MG/ML IV PUSH PER PATIENT REQUEST PAIN 10/10 ON LEFT UPPER ARM. V/S TAKEN BP 118/87. P-103, CONTINUED MONITORING.
[2019-05-21] MEDS: VANCOMYCIN 1.5 GM in IV D5W 500 ML IV SCH (15:25)
[2019-05-21 16:00] VITALS: BP 122/78
[2019-05-21] MEDS ORDERED: IBUPROFEN 400 MG TABLET PO PRN (16:30)
[2019-05-21] MEDS ORDERED: RIVAROXABAN 10 MG TABLET PO SCH (17:00)
--- NOTE | 2019-05-21 17:22 | NUR ---
RN NOTES PATIENT IRRITABLE AT THIS TIME, WAS COMPLAINING OF PAIN ON LEFT ARM, WALKING BACK AND FORTH IN THE ROOM, UNKEMPT. ADMINISTERED OXY IR 10/325 MG PO PRN LEFT SHOULDER 10/10 PER PATIENT REQUEST, V/S TAKEN STABLE, BS-178 MG/DL COVERAGE GIVEN, ALSO ADMINISTERED SCHEDULED MEDICATION, SEEN BY PAIN MANAGEMENT MD. INFUSING VANCOMYCIN ON LEFT AC AREA INTACT. PATIENT TOLERATED DINNER WELL. CALL LIGHT WITHIN TO REACH, SAFETY PRECAUTION MAINTAINED ALL THE TIME.
[2019-05-21] MEDS: oxyCODONE IR immediate release 5 MG PO PRN (17:25)
[2019-05-21] MEDS: GABAPENTIN 300 MG CAPSULE PO SCH (17:46)
--- NOTE | 2019-05-21 18:30 | NUR ---
RN NOTES MEDICATION WERE ADMINISTERED FOR PAIN EFFECTIVE, PATIENT STABLE LYING IN THE BED, BUT REFUSED TAKE A SHOWER NOW STILL WAITING FOR THE , AND REFUSED DRESSING TO BE CHANGED. INFUSING ZOSYN 100 ML/HR ON LEFT ARM INTACT. ENDORSED ONCOMING NURSE FOLLOW PLAN OF CARE.
--- NOTE | 2019-05-21 19:15 | NUR ---
MS RN NOTE RECEIVED PT IN STABLE CONDITION A/O X4. CURRENTLY IN BED WATCHING TV. NO SIGNS OF SOB OR DISTRESS, PAIN CURRENTLY TOLERABLE. IV IN L AC #[address] PT WAITING FOR TO RETURN WITH A SHIRT SO HE CAN SHOWER. AND WOUND TX WILL BE DONE. ALL CURRENT NEEDS ATTENDED TO. BED LOW, LOCKED, UPPER RAILS UP, AND CALL LIGHT WITHIN REACH. WILL CONT TO MONITOR.
[2019-05-21 20:00] VITALS: BP 123/70
[2019-05-22] MEDS: MORPHINE SULFATE INJ 2 MG/ML DISP.SYRIN IV PRN ×2 (00:11→11:46)
[2019-05-22] MEDS: PIPERACILLIN /TAZOBACTAM 3.375 G in IV D5W 50 ML IV SCH ×3 (00:11→12:50)
[2019-05-22] MEDS: ACETAMINOPHEN 325 MG TABLET PO PRN (02:10)
[2019-05-22] MEDS: oxyCODONE IR immediate release 5 MG PO PRN ×2 (05:30→14:24)
[2019-05-22] MEDS: INSULIN REGULAR, HUMAN 100 UNIT/ML 3 ML VIAL SQ PRN (06:10)
--- NOTE | 2019-05-22 06:28 | NUR ---
MS RN NOTE PT IN STABLE CONDITION A/O X4. CURRENTLY IN BED WATCHING TV. NO SIGNS OF SOB OR DISTRESS, PAIN CURRENTLY TOLERABLE. IV IN R AC #[address] WITH IV ATB INFUSING, TOLERATING WELL. WOUND TX DONE. ALL CURRENT NEEDS ATTENDED TO. BED LOW, LOCKED, UPPER RAILS UP, AND CALL LIGHT WITHIN REACH. WILL CONT TO MONITOR AND ENDORSE TO NEXT SHIFT FOR JACQUELINE.
[2019-05-22 08:00] VITALS: BP 123/83
--- NOTE | 2019-05-22 08:00 | NUR ---
RN NOTES RECEIVED PATIENT IN THE BED A/O X4, PATIENT RESTING IN THE BED, MEDICATION WERE ADMINISTERED FOR PAIN EFFECTIVE, V/S TAKEN STABLE, ALSO ADMINISTERED SCHEDULED MEDICATION, PATIENT AMBULATORY USING BATHROOM, DRESSING CHANGED ON LEFT UPPER ARM , STARTED VANCOMYCIN 500 ML IV INFUSION. CALL LIGHT WITHIN TO REACH, SAFETY PRECAUTION MAINTAINED ALL THE TIME .
[2019-05-22 08:02] LABS: BASOPHILS # (AUTO) 0.1 /CMM (0.0-0.2); BASOPHILS % (AUTO) 0.8 % (0.0-2.0); EOSINOPHILS % (AUTO) 5.2 % (0.0-6.0); HEMATOCRIT 37 % (39-51); HEMOGLOBIN 12.1 g/dL (13.5-17.5); LYMPHOCYTES # (AUTO) 2.3 /CMM (0.8-4.8); MEAN CORPUSCULAR HGB CONC 33 g/dl (31.0-36.0); MEAN CORPUSCULAR VOLUME 84 fL (80-96); MONOCYTES # (AUTO) 1.1 /CMM (0.1-1.30); MONOCYTES % (AUTO) 11.4 % (2.0-12.0); NEUTROPHILS # (AUTO) 5.6 /CMM (1.8-8.9); NEUTROPHILS % (AUTO) 58.6 % (43.0-81.0); PLATELET COUNT (AUTO) 241 /CMM (150-450); RED BLOOD CELL COUNT(AUTO) 4.42 MIL/uL (4.5-6.0); WHITE BLOOD COUNT (AUTO) 9.6 K/uL (4.3-11.0)
[2019-05-22 08:40] LABS: CALCIUM, SERUM 8.8 mg/dL (8.5-10.1); CREATININE 1.3 mg/dL (0.6-1.3); MAGNESIUM 1.8 mg/dL (1.8-2.4); POTASSIUM 3.3 mmol/L (3.5-5.1)
[2019-05-22] MEDS ORDERED: FUROSEMIDE 80 MG TABLET PO SCH (09:00)
[2019-05-22] MEDS ORDERED: LISINOPRIL (10MG) 10 MG TABLET PO SCH (09:00)
[2019-05-22] MEDS: GABAPENTIN 300 MG CAPSULE PO SCH ×2 (09:02→11:45)
[2019-05-22] MEDS: LACTOBACILLUS RHAMNOSUS GG 1 EACH CAP.SPRINK PO SCH (09:02)
[2019-05-22] MEDS: METOPROLOL SUCCINATE 50 MG TAB.SR.24H PO SCH (09:03)
[2019-05-22 09:04] VITALS: BP 123/83
[2019-05-22] MEDS: VANCOMYCIN 1.5 GM in IV D5W 500 ML IV SCH (09:04)
[2019-05-22] MEDS: BLOOD SUGAR DIAGNOSTIC 1 EACH STRIP VI SCH ×2 (09:04→11:45)
[2019-05-22] MEDS: SPIRONOLACTONE 25 MG TABLET PO SCH (09:04)
[2019-05-22] MEDS ORDERED: SPIR25TA6 PO (10:44)
[2019-05-22] MEDS ORDERED: LISI-605 PO (10:44)
[2019-05-22] MEDS ORDERED: PIPE3.379 IV (10:44)
[2019-05-22] MEDS ORDERED: FURO80TA3 PO (10:44)
[2019-05-22] MEDS ORDERED: METO50TA7 PO (10:44)
[2019-05-22] MEDS ORDERED: OXYC5CAP18 PO (10:44)
[2019-05-22] MEDS ORDERED: GABA300C PO (10:44)
[2019-05-22] MEDS ORDERED: VANC1.5P20 IV (10:44)
[2019-05-22] MEDS ORDERED: RIVA10TA PO (10:44)
[2019-05-22] MEDS ORDERED: POTASSIUM CHLORIDE 20 MEQ TAB.PRT.SR PO SCH (11:00)
--- NOTE | 2019-05-22 11:25 | NUR ---
RN NOTES PATIENT IN THE BED SLEEPING IN THE BED , NO ACUTE RESPIRATORY DISTRESS, INFUSING VANCOMYCIN 250 ML/ML HR AT TIS TIME ON LEFT AC AREA INTACT, CALL LIGHT WITHIN TO TEACH. SAFETY PRECAUTION MAINTAINED ALL THE TIME. PATIENT WILL D/C HOME WITH HOME HEALTH, WITH IV MEDICATION.
--- NOTE | 2019-05-22 11:46 | NUR ---
RN NOTES ADMINISTERED MORPHINE 2 MG/ML IV PUSH FOR PAIN 10/10 PER PATIENT REQUEST FOR LEFT UPPER PAIN 10/10, V/S TAKEN BP 124/85, P-100. PATIENT VERY DEMANDING, VERBALLY ABUSIVE, ASKING OXY IR INSTEAD OF MORPHINE UNABLE TO ADMINISTER BECAUSE OF Q8 HR . CONTINUED MONITORING. BS-176 MG/DL.
[2019-05-22] MEDS: *INSULIN REGULAR(HUMULIN R)HUM 100 UNIT/ML VIAL SQ PRN (12:53)
--- NOTE | 2019-05-22 14:24 | NUR ---
RN NOTES ADMINISTERED OXY IR 10 /325 MG PO PRN FOR LEFT ARM PAIN 04/13 PER PATIENT REQUEST, V/S TAKEN BP 122/82, P-95, R-18, CONTINUED MONITORING.
--- NOTE | 2019-05-22 16:00 | NUR ---
rn notes MIDLINE INSERTED BY CHARITO JAY AT THIS TIME ON RIGHT UPPER AR BRECHIAL AREA #18INTACT. PATIENT GOING TO D/C HOME WITH HOME HEALTH. REMOVED IV ACCESS, DRESSING CHANGED, OFFERED SOME SNACK BEFORE DISCHARGING, AND GIVEN 1 DAY DRESSING SUPPLY. SEEN PATIENT BY CASE MANAGEMENT FOR HOME HEALTH ARRANGEMENT, AND MEDICATION DELIVERY FROM PHARMACY.
--- NOTE | 2019-05-22 16:32 | NUR ---
GREEN WARE CASTER NOTES PATIENT DISCHARGE AT THIS TIME GOING [place] WITH HOME HEALTH. PATIENT STABLE, V/S WNL, MIDLINE ON RIGHT UPPER ARM INTACT, DRESSING CHANGED ON LEFT UPPER ARM, AND GIVEN ONE DAY DRESSING SUPPLY . PATIENT REFUSED PAIN. MED RECONCILIATION AND DISCHARGE ORDER REVIEWED AND EXPLAINED PATIENT, AND . PATIENT VERBALIZED UNDERSTANDING. PRESCRIPTION SPECIALLY HANDED TO THE WITH OTHER PAPERWORK. PICTURE TAKEN, PATIENT SIGN PAPERWORK. PATIENT WILL FOLLOW DISCHARGE PRIMARY MD, AND Dr. NULL RED MUD THICKENER OPERATOR IN AN ONE WEEK PHONE # [phone] [facility] [id number]. ESCORTED PATIENT TO THE [facility] FOR SAFETY. 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
== END 2019-05-22 16:30 | disposition home health service (06) | DRG 194 ==
LOC: TELE 19:19 → MED 20:00 → TELE 05-16 17:51 → MED 05-21 08:50
PROVIDERS: ADMIT Internal Medicine; ATTEND Registered Nurse
PROC: 0X990ZZ Drainage of Left Upper Arm, Open Approach (ICD-10-PCS; principal; 2019-05-16)
PROC: 05H533Z Insertion of Infusion Device into Right Subclavian Vein, Percutaneous Approach (ICD-10-PCS; 2019-05-22)
DX: I11.0 Hypertensive heart disease with heart failure (principal); E11.42 Type 2 diabetes mellitus with diabetic polyneuropathy; I27.20 Pulmonary hypertension, unspecified; E66.01 Morbid (severe) obesity due to excess calories; E83.42 Hypomagnesemia; I48.92 Unspecified atrial flutter; I47.1 Supraventricular tachycardia; L02.414 Cutaneous abscess of left upper limb; I50.23 Acute on chronic systolic (congestive) heart failure; I48.91 Unspecified atrial fibrillation; Z68.41 Body mass index [BMI] 40.0-44.9, adult; E78.5 Hyperlipidemia, unspecified; L03.114 Cellulitis of left upper limb; G89.4 Chronic pain syndrome; Z71.6 Tobacco abuse counseling; I34.0 Nonrheumatic mitral (valve) insufficiency; N52.9 Male erectile dysfunction, unspecified; G47.33 Obstructive sleep apnea (adult) (pediatric); I45.10 Unspecified right bundle-branch block; I42.9 Cardiomyopathy, unspecified; Z79.891 Long term (current) use of opiate analgesic; F12.90 Cannabis use, unspecified, uncomplicated; Z79.4 Long term (current) use of insulin
CPT/HCPCS: 36415; 36569; 71045-TC; 80048-TC; 80053-TC; 80061-TC; 80202-TC; 81000-TC; 82962-TC; 83735-TC; 83880; 84100-TC; 84439-TC; 84443-TC; 84484-TC; 85025-TC; 85610-TC; 85730-TC; 87070-TC; 87081-TC; 93307-TC; 93971-TC; A4217; A6253; A6403; A6407; G0378; J0690; J1815; J1940; J2250; J2270; J2405; J2543; J2704; J2765; J3010; J3370; J3430; J3475; J3490; J7040; J7050; J7060

== ENCOUNTER 2019-05-27 00:29 | Emergency (ER) | payer OTHER ==
[~2019-05-27] VITALS: Ht 162.6 cm; Wt 108.9 kg
[~2019-05-27 00:29] MED LIST: ATOR40TA PO; DOCU-141 PO; FURO80TA3 PO; GABA300C PO; INSU100V3 IJ; LISI-607 PO; LISI10TA59 PO; METO50TA7 PO; OXYC5CAP18 PO; PIPE3.379 IV; RIVA10TA PO; SPIR25TA6 PO; VANC1.5P20 IV
[2019-05-27] MEDS ORDERED: PIPERACILLIN /TAZOBACTAM 3.375 G in IV D5W 50 ML IV ONE (01:00)
[2019-05-27] MEDS ORDERED: VANCOMYCIN 1 GM in IV D5W 250 ML IV ONE (01:00)
[2019-05-27] MEDS ORDERED: HYDROMORPHONE 1 MG/1 ML DISP.SYRIN IV ONE (01:00)
[2019-05-27] MEDS ORDERED: PIPERACILLIN /TAZOBACTAM 3.375 G VIAL IV ONE (01:03)
[2019-05-27] MEDS ORDERED: VANCOMYCIN 1 GM VIAL ONE (01:03)
[2019-05-27] MEDS ORDERED: HYDROMORPHONE 1 MG/1 ML DISP.SYRIN ONE (01:04)
--- NOTE | 2019-05-27 01:49 | NUR ---
BIB SELF REQUESTING PICC LINE INSERTION & ANTIBIOTIC INFUSION, C/O CHRONIC BACK PAIN, LINE INSERTED, ABX RUNNING
--- NOTE | 2019-05-27 03:12 | NUR ---
Patient discharged to home in stable condition. Written and verbal after care instructions given. Patient verbalizes understanding of instruction.
[2019-05-27 03:13] VITALS: BP 130/85
== END 2019-05-27 03:13 | disposition home or self-care (01) ==
LOC: ER 00:33
DX: T82.898A Other specified complication of vascular prosthetic devices, implants and grafts, initial encounter (principal); I48.91 Unspecified atrial fibrillation; E11.9 Type 2 diabetes mellitus without complications; Z88.8 Allergy status to other drugs, medicaments and biological substances; Z79.899 Other long term (current) drug therapy; Z79.4 Long term (current) use of insulin
CPT/HCPCS: 96365; 96368; 96375; 99283; A6407; J1170; J2543; J3370; J7060